=== PATIENT | female | born 2000 | race Caucasian/White ===

== ENCOUNTER → 2018-10-25 14:31 | Outpatient (CLI) | payer BC, SELFPAY ==
[2018-10-25 10:45] VITALS: BMI 34.9
== END ==
PROVIDERS: Family Provider Pediatrics; PCP Pediatrics; Referring Provider Physician Assistant; Visit Provider Physician Assistant
DX: J02.9 Acute pharyngitis, unspecified (principal)
CPT/HCPCS: 87081

== ENCOUNTER → 2019-02-12 | Outpatient (CLI) | payer BC, SELFPAY ==
[2019-02-12 09:53] VITALS: BMI 34.9
== END | disposition home or self-care (01) ==
LOC: LABSPEC 14:16
PROVIDERS: Family Provider Pediatrics; PCP Pediatrics; Referring Provider Physician Assistant; Visit Provider Physician Assistant
DX: J02.9 Acute pharyngitis, unspecified (principal)
CPT/HCPCS: 87081